=== PATIENT | male | born 1965 | race Caucasian/White ===

== ENCOUNTER 2019-05-12 10:55 | Emergency (ER) | payer SELFPAY ==
[~2019-05-12] VITALS: Ht 177.8 cm; Wt 66.0 kg
[2019-05-12] MEDS ORDERED: IV NORMAL SALINE 1,000ML 1,000 ML IV SCH (11:27)
--- NOTE | 2019-05-12 11:38 | PHYS DOC ---
Past History Past Medical History: Diabetes Additional Past Medical Histor: pancreatic cancer Additional Past Surgical Histo: Whipple procedure Alcohol Use: None Drug Use: None Adult General Chief Complaint Chief Complaint: BACK PAIN - NO INJURY HPI HPI Patient is a 54-year-old male who presents to the emergency department for evaluation. He has remote history of pancreatic cancer, having undergone a Whipple procedure about 10 years ago, and states that he frequently will get episodes of upper abdominal pain, pain in his upper back, as well as nausea. He has not had any significant vomiting, or change in his bowel habitsshe states she has chronic diarrhea since his surgery. He has not had any fevers or chills, chest pain, or significant shortness of breath or cough. The patient states that he was seen in the emergency department at the [facility] about 2 months ago, and bring some records with him, from March 22, 2019, which included chest x- ray, blood and urine testing, and a noncontrast CT of his abdomen and pelvis. He states he has seen his PCP before for the same symptoms and they will wax and wane, several times per year, he states the current episode has been going on 3 days. Review of Systems Review of Systems Constitutional: Denies fever or chills [] Eyes: Denies change in visual acuity, redness, or eye pain [] HENT: Denies nasal congestion or sore throat [] Respiratory: Denies cough or shortness of breath [] Cardiovascular:The patient denies any shortness of breath, chest pain, palpitations, or orthopnea [] GI: No additional information not addressed in HPI [] : Denies dysuria or hematuria [] Musculoskeletal: Denies neck pain or joint pain [] Integument: Denies rash or skin lesions [] Neurologic: Denies headache, focal weakness or sensory changes [] Endocrine: Denies polyuria or polydipsia [] All other systems were reviewed and found to be within normal limits, except as documented in this note. Current Medications Current Medications Current Medications Medications (Trade) Dose Ordered Sig/Marley Start Time Stop Time Status Last Admin Dose Admin Sodium Chloride 1,000 ml @ 1,000 mls/hr Q1H 05/12/19 11:27 05/12/19 12:26 UNV Allergies Allergies Allergies Coded Allergies Type Severity Reaction Last Updated Verified naproxen Allergy Unknown 05/12/19 Yes Physical Exam Physical Exam PHYSICAL EXAM: CONSTITUTIONAL: Well developed, well nourished HEAD: normocephalic, atraumatic EENT: PERRL, EOMI. Conjunctivae normal color, sclerae non-icteric; moist mucous membranes. NECK: Supple, non-tender; no meningismus. LUNGS: Lungs CTA, breathing even and unlabored. Normal air movement. HEART: Regular rate and rhythm, no murmur CHEST: No deformity; non-tender ABDOMEN: The abdomen is firm with voluntary guarding which limits the exam, tenderness to the entire abdomen is present, is in the upper abdomen, without rebound or guarding, there is no definite palpable mass, the lower abdomen is relatively non-tender, no masses or bruits. EXTREM: Normal ROM; no deformity, no calf tenderness. Normal pulses palpable in all extremities. There is no pedal edema. SKIN: No rash; no diaphoresis NEURO: Alert; normal speech and cognition; CN's grossly intact; strength grossly intact without focal deficit. BACK: There is moderate bilateral CVA TTP.There is no bony tenderness to palpation of the thoracic or lumbar spine. Current Patient Data Lab Results Laboratory Tests Test 05/12/19 11:41 05/12/19 14:12 White Blood Count 11.5 x10^3/uL Red Blood Count 4.94 x10^6/uL Hemoglobin 15.0 g/dL Hematocrit 43.5 % Mean Corpuscular Volume 88 fL Mean Corpuscular Hemoglobin 30 pg Mean Corpuscular Hemoglobin Concent 35 g/dL Red Cell Distribution Width 13.2 % Platelet Count 165 x10^3/uL Neutrophils (%) (Auto) 88 % Lymphocytes (%) (Auto) 7 % Monocytes (%) (Auto) 5 % Eosinophils (%) (Auto) 0 % Basophils (%) (Auto) 0 % Neutrophils # (Auto) 10.2 x10^3uL Lymphocytes # (Auto) 0.8 x10^3/uL Monocytes # (Auto) 0.5 x10^3/uL Eosinophils # (Auto) 0.0 x10^3/uL Basophils # (Auto) 0.0 x10^3/uL Sodium Level 140 mmol/L Potassium Level 3.1 mmol/L Chloride Level 104 mmol/L Carbon Dioxide Level 24 mmol/L Anion Gap 12 Blood Urea Nitrogen 8 mg/dL Creatinine 0.7 mg/dL Estimated GFR (Cockcroft-Gault) 118.4 BUN/Creatinine Ratio 11 Glucose Level 172 mg/dL Calcium Level 8.5 mg/dL Total Bilirubin 0.6 mg/dL Aspartate Amino Transf (AST/SGOT) 17 U/L Alanine Aminotransferase (ALT/SGPT) 28 U/L Alkaline Phosphatase 99 U/L Total Protein 6.8 g/dL Albumin 3.3 g/dL Albumin/Globulin Ratio 0.9 Lipase 79 U/L Urine Collection Type Unknown Urine Color Yellow Urine Clarity Clear Urine pH 6.0 Urine Specific [place] 1.015 Urine Protein 30 mg/dl Urine Glucose (UA) 250 mg/dL Urine Ketones (Stick) 15 mg/dL Urine Blood Neg Urine Nitrite Neg Urine Bilirubin Neg Urine Urobilinogen Dipstick 0.2 mg/dL Urine Leukocyte Esterase Neg Urine RBC 0 /HPF Urine WBC 1-4 /HPF Urine Squamous Epithelial Cells Occ /LPF Urine Bacteria 0 /HPF Urine Mucus Mod /LPF Current Medications Medications (Trade) Dose Ordered Sig/Marley Route PRN Reason Start Time Stop Time Status Last Admin Dose Admin Sodium Chloride 1,000 ml @ 1,000 mls/hr Q1H IV 05/12/19 11:27 05/12/19 12:26 DC 05/12/19 11:42 Iohexol (Omnipaque 300 Mg/ml) 75 ml 1X ONCE IV 05/12/19 11:45 05/12/19 11:46 DC 05/12/19 11:45 Morphine Sulfate (Morphine 4mg Syringe) 4 mg 1X ONCE IV 05/12/19 12:45 05/12/19 12:46 DC 05/12/19 12:39 Morphine Sulfate (Morphine 4mg Syringe) 4 mg STK-MED ONCE .ROUTE 05/12/19 12:39 05/12/19 12:39 DC Ondansetron HCl (Zofran) 4 mg 1X ONCE IVP 05/12/19 12:45 05/12/19 12:47 DC 05/12/19 12:45 Potassium Chloride (Klor-Con) 20 meq 1X ONCE PO 05/12/19 13:15 05/12/19 13:16 DC 05/12/19 13:13 Sodium Chloride 1,000 ml @ 1,000 mls/hr 1X ONCE IV 05/12/19 13:15 05/12/19 14:14 DC 05/12/19 13:09 Morphine Sulfate (Morphine 4mg Syringe) 4 mg 1X ONCE IV 05/12/19 14:15 05/12/19 14:25 DC 05/12/19 14:15 Multi-Ingredient Mouthwash/Gargle (Gi Cocktail) 20 ml 1X ONCE PO 05/12/19 14:30 05/12/19 14:31 DC EKG EKG Normal sinus rhythm with a normal rate, normal axis, normal intervals, there are no acute ischemic ST/T changes.[] Radiology/Procedures Radiology/Procedures PROCEDURE: CT ABD PELV W/ IV CONTRST ONLY EXAM: CT ABDOMEN/PELVIS WITH CONTRAST. HISTORY: Abdominal pain, pancreatic cancer status post Whipple procedure. TECHNIQUE: Computed tomography of the abdomen and pelvis was performed after the intravenous administration of iodinated contrast. One or more of the following individualized dose reduction techniques were utilized for this examination: 1. Automated exposure control. 2. Adjustment of the mA and/or kV according to patient size. 3. Use of iterative reconstruction technique. COMPARISON: None. FINDINGS: Lung windows through the visualized portions of the bases reveal mild atelectasis. Bone windows reveal no suspicious lesions. There are changes of body and tail sparing Whipple procedure. The downstream pancreatic duct is dilated to 8 mm. No clear recurrent mass is identified. There is no vascular encasement. There is pneumobilia in the left hepatic lobe without intrahepatic biliary dilatation. No suspicious hepatic lesions are seen. The spleen, adrenal glands and kidneys are unremarkable. The gallbladder is surgically absent. There are no pathologically enlarged lymph nodes. There is mild gaseous distention of the small bowel without a transition point. Stool in the right colon suggests mild constipation. IMPRESSION: 1. Dilatation of the pancreatic duct status post Whipple procedure. This may be a postprocedural appearance. Comparison with older studies is recommended to assess stability. No clear evidence of recurrence. 2. Findings suggesting mild constipation with mild gaseous distention of the small bowel. No clear evidence of obstruction.[] Course & Med Decision Making Course & Med Decision Making Pertinent Labs and Imaging studies reviewed. (See chart for details) 2:50 PM: The patient's condition remains stable. He states that the pain did start moving up into his chest but he has had this before. EKG is unremarkable. This is not a new pain for him and I do not think his pain is consistent with an acute coronary syndrome. I discussed importance of further outpatient follow- up, with GI. []Patient remains stable. I discussed test results, the need for close follow- up, and return precautions. Dragon Disclaimer Dragon Disclaimer This electronic medical record was generated, in whole or in part, using a voice recognition dictation system. Departure Departure: Impression: Primary Impression: Abdominal pain Disposition: HOME, SELF-CARE Condition: STABLE Referrals: CHANDA VALERA APRN (PCP) SELENE BARAJAS MD Patient Instructions: Abdominal Pain, Constipation, Adult Additional Instructions: Further outpatient evaluation by a engraver picture is warranted. Please contact Dr. Barajas, at the provided phone number to schedule appointment for further evaluation. Scripts Acetaminophen With Codeine (TYLENOL WITH CODEINE #3 TABLET) 1 Each Tablet 1 TAB PO PRN Q6HRS PRN for pain MDD 4 Tablet(s), #15 TAB 0 Refills Prov: AJY RODGERS MD 05/12/19 Ondansetron (ONDANSETRON ODT) 4 Mg Tab.rapdis 1 TAB PO PRN Q6-8HRS for N/V, #15 TAB Prov: JAY RODGERS MD 05/12/19 Omeprazole (OMEPRAZOLE) 20 Mg Capsule. 1 CAP PO DAILY for -, #30 CAP 0 Refills Prov: JAY RODGERS MD 05/12/19 JAY RODGERS MD May 12, 2019 11:38
[2019-05-12] MEDS ORDERED: IOHEXOL 300 MG/ML 75 ML VIAL. IV ONE (11:45)
[2019-05-12 12:05] LABS: BASO % 0 % (0-3); EOS % 0 % (0-3); HEMATOCRIT 43.5 % (39.0-53.0); LYMPH # 0.8 x10^3/uL (1.0-4.8); LYMPH % 7 % (24-48); MEAN CORPUSCULAR HEMOGLOBIN 30 pg (25-35); MEAN CORPUSCULAR HGB CONC 35 g/dL (31-37); MEAN CORPUSCULAR VOLUME 88 fL (79-100); MONO # 0.5 x10^3/uL (0.0-1.1); MONO % 5 % (0-9); NEUT # 10.2 x10^3uL (1.8-7.7); NEUT % 88 % (31-73); PLATELET COUNT 165 x10^3/uL (140-400); RED BLOOD COUNT 4.94 x10^6/uL (4.30-5.70); RED CELL DISTRIBUTION WIDTH 13.2 % (11.5-14.5); WHITE BLOOD COUNT 11.5 x10^3/uL (4.0-11.0)
[2019-05-12 12:12] LABS: CALCIUM 8.5 mg/dL (8.5-10.1); CREATININE 0.7 mg/dL (0.7-1.3); GFR 118.4; POTASSIUM 3.1 mmol/L (3.5-5.1)
[2019-05-12 12:26] LABS: ALBUMIN 3.3 g/dL (3.4-5.0); ALBUMIN/GLOBULIN RATIO 0.9 (1.0-1.7); TOTAL BILIRUBIN 0.6 mg/dL (0.2-1.0); TOTAL PROTEIN 6.8 g/dL (6.4-8.2)
[2019-05-12] MEDS ORDERED: MORPHINE SULFATE 4 MG/ML DISP.SYRIN. ONE (12:39)
[2019-05-12] MEDS ORDERED: ONDANSETRON PF 4 MG/2 ML VIAL. IVP ONE (12:45)
[2019-05-12] MEDS ORDERED: MORPHINE SULFATE 4 MG/ML DISP.SYRIN. IV ONE ×2 (12:45→14:15)
[2019-05-12] MEDS ORDERED: IV NORMAL SALINE 1,000ML 1,000 ML IV ONE (13:15)
[2019-05-12] MEDS ORDERED: POTASSIUM CHLORIDE 20 MEQ TABLET.ER. PO ONE (13:15)
--- NOTE | 2019-05-12 13:19 | RAD ---
EXAM: CT ABDOMEN/PELVIS WITH CONTRAST. HISTORY: Abdominal pain, pancreatic cancer status post Whipple procedure. TECHNIQUE: Computed tomography of the abdomen and pelvis was performed after the intravenous administration of iodinated contrast. One or more of the following individualized dose reduction techniques were utilized for this examination: 1. Automated exposure control. 2. Adjustment of the mA and/or kV according to patient size. 3. Use of iterative reconstruction technique. COMPARISON: None. FINDINGS: Lung windows through the visualized portions of the bases reveal mild atelectasis. Bone windows reveal no suspicious lesions. There are changes of body and tail sparing Whipple procedure. The downstream pancreatic duct is dilated to 8 mm. No clear recurrent mass is identified. There is no vascular encasement. There is pneumobilia in the left hepatic lobe without intrahepatic biliary dilatation. No suspicious hepatic lesions are seen. The spleen, adrenal glands and kidneys are unremarkable. The gallbladder is surgically absent. There are no pathologically enlarged lymph nodes. There is mild gaseous distention of the small bowel without a transition point. Stool in the right colon suggests mild constipation. IMPRESSION: 1. Dilatation of the pancreatic duct status post Whipple procedure. This may be a postprocedural appearance. Comparison with older studies is recommended to assess stability. No clear evidence of recurrence. 2. Findings suggesting mild constipation with mild gaseous distention of the small bowel. No clear evidence of obstruction. Electronically signed by: Sandra Le MD (05/12/2019 1:16 PM) [facility]
[2019-05-12 14:04] VITALS: BP 133/76
[2019-05-12] MEDS ORDERED: LIDO:MAALOX 1:1 20 ML SINGLE DOSE. PO ONE (14:30)
[2019-05-12 14:36] LABS: BILIRUBIN,URINE NEG (NEG); CLARITY,URINE CLEAR; COLOR,URINE YELLOW; GLUCOSE,URINE 250 mg/dL (NEG)
[2019-05-12 14:37] LABS: BACTERIA,URINE 0 /HPF (0-FEW); NITRITE,URINE NEG (NEG); RBC,URINE 0 /HPF (0-2); SQUAMOUS EPITHELIAL CELL,UR OCC /LPF; UROBILINOGEN,URINE 0.2 mg/dL (0.2 mg/dL)
[2019-05-12] MEDS ORDERED: OMEP20CA16 PO (14:53)
[2019-05-12] MEDS ORDERED: ACET-704 PO (14:53)
[2019-05-12] MEDS ORDERED: ONDA4TAB12 PO (14:53)
== END 2019-05-12 15:05 | disposition home or self-care (01) ==
LOC: ER 10:55
DX: R10.10 Upper abdominal pain, unspecified (principal); R11.0 Nausea; R19.7 Diarrhea, unspecified; E11.9 Type 2 diabetes mellitus without complications; Z98.890 Other specified postprocedural states; Z88.6 Allergy status to analgesic agent
CPT/HCPCS: 36415; 74177; 80053; 81001; 83690; 85025; 93005; 96361; 96374; 96375; 96376; 99285; J2270; J2405; Q9967; J7030

== ENCOUNTER 2021-02-21 06:18 | Emergency (ER) | payer OTHER ==
[~2021-02-21] VITALS: Ht 177.8 cm; Wt 66.0 kg
[~2021-02-21 06:18] MED LIST: ACET-704 PO; OMEP20CA16 PO; ONDA4TAB12 PO
--- NOTE | 2021-02-21 06:26 | PHYS DOC ---
Past History Past Medical History: Diabetes (type II insulin dependent) Additional Past Medical Histor: pancreatic cancer Past Surgical History: Other Additional Past Surgical Histo: Whipple procedure Alcohol Use: None Drug Use: None Adult General Chief Complaint Chief Complaint: ABDOMINAL PAIN [facility] HPI Patient is a 56-year-old male presenting via POV for abdominal pain. Onset was yesterday without any known inciting event, trauma, ingestion, exposure, sick contact or recent travel. Nothing known makes better, p.o. intake makes worse. Patient describes pain is focal to right lower quadrant and sharp. Patient reports pain is 9/10 in severity and has been more constant in the past several hours since onset. He has history of Whipple procedure due to pancreatic cancer that was performed 1 year ago, states he is cancer free and has had good follow- up in outpatient setting for this, no other abdominal surgeries. Also admits he is a brittle insulin-dependent type 2 diabetic and has been at baseline health with no major changes in medication dosage recently or extreme fluctuations in glycemic control. Denies any recent systemic signs or symptoms of illness such as fever. He is not vaccinated against COVID-19. Patient admits since symptom onset he has been nauseous and had x2 episodes of nonbloody nonbilious emesis Review of Systems Review of Systems Fourteen body systems of review of systems have been reviewed. See HPI for pertinent positives and negative responses, other macias all other systems are negative, non-pertinent or non-contributory Allergies Allergies Allergies Coded Allergies Type Severity Reaction Last Updated Verified naproxen Allergy Unknown 05/12/19 Yes Physical Exam Physical Exam Constitutional: Well developed, well nourished, no acute distress, non-toxic appearance. HENT: Normocephalic, atraumatic, bilateral external ears normal, oropharynx moist, no oral exudates, nose normal. Eyes: PERRLA, EOMI, conjunctiva normal, no discharge. Neck: Normal range of motion, no tenderness, supple, no stridor. Cardiovascular: Heart rate regular, sinus rhythm, no murmurs rubs or gallops Lungs & Thorax: Bilateral breath sounds clear to auscultation Abdomen: Bowel sounds normal, soft, no tenderness, no masses, no pulsatile masses. Nonsurgical abdomen, no peritoneal signs Skin: Warm, dry, no erythema, no rash. Back: No tenderness, no CVA tenderness. Extremities: No tenderness, no cyanosis, no clubbing, ROM intact, no edema. Neurologic: Alert and oriented X 3, grossly normal motor & sensory function, no focal deficits noted. Psychologic: Anxious affect and mood Current Patient Data Vital Signs Vital Signs Date Time Temp Pulse Resp B/P (MAP) Pulse Ox O2 Delivery O2 Flow Rate FiO2 02/21/21 06:28 98.0 55 18 160/79 (106) 100 Room Air Vital Signs Date Time Temp Pulse Resp B/P (MAP) Pulse Ox O2 Delivery O2 Flow Rate FiO2 02/21/21 06:38 24 02/21/21 06:28 98.0 55 160/79 (106) 100 Room Air Lab Results Laboratory Tests Test 02/21/21 06:35 02/21/21 06:37 White Blood Count 11.4 x10^3/uL Red Blood Count 4.67 x10^6/uL Hemoglobin 14.5 g/dL Hematocrit 41.8 % Mean Corpuscular Volume 90 fL Mean Corpuscular Hemoglobin 31 pg Mean Corpuscular Hemoglobin Concent 35 g/dL Red Cell Distribution Width 13.6 % Platelet Count 228 x10^3/uL Neutrophils (%) (Auto) 86 % Lymphocytes (%) (Auto) 10 % Monocytes (%) (Auto) 4 % Eosinophils (%) (Auto) 0 % Basophils (%) (Auto) 0 % Neutrophils # (Auto) 9.9 x10^3uL Lymphocytes # (Auto) 1.1 x10^3/uL Monocytes # (Auto) 0.4 x10^3/uL Eosinophils # (Auto) 0.0 x10^3/uL Basophils # (Auto) 0.0 x10^3/uL Sodium Level 139 mmol/L Potassium Level 3.8 mmol/L Chloride Level 103 mmol/L Carbon Dioxide Level 26 mmol/L Anion Gap 10 Blood Urea Nitrogen 6 mg/dL Creatinine 0.8 mg/dL Estimated GFR (Cockcroft-Gault) 100.7 BUN/Creatinine Ratio 8 Glucose Level 246 mg/dL Lactic Acid Level 1.1 mmol/L Calcium Level 8.6 mg/dL Total Bilirubin 0.7 mg/dL Aspartate Amino Transf (AST/SGOT) 21 U/L Alanine Aminotransferase (ALT/SGPT) 32 U/L Alkaline Phosphatase 117 U/L Troponin I High Sensitivity 6 ng/L Total Protein 6.5 g/dL Albumin 4.0 g/dL Albumin/Globulin Ratio 1.6 Lipase 17 U/L Glucose (Fingerstick) 243 mg/dL Current Medications Medications (Trade) Dose Ordered Sig/Marley Route PRN Reason Start Time Stop Time Status Last Admin Dose Admin Sodium Chloride 1,000 ml @ 1,000 mls/hr Q1H IV 02/21/21 06:45 02/21/21 07:44 DC 02/21/21 06:38 Morphine Sulfate (Morphine 4mg Syringe) 4 mg 1X ONCE IV 02/21/21 06:45 02/21/21 06:47 DC 02/21/21 06:38 Iohexol (Omnipaque 300 Mg/ml) 75 ml 1X ONCE IV 02/21/21 06:45 02/21/21 06:47 DC Info (Do NOT chart on this entry -- for MONITORING) 1 each PRN DAILY PRN MC SEE COMMENTS 02/21/21 06:45 02/23/21 06:44 EKG EKG EKG ordered and interpreted by myself 0745 hrs. as sinus rhythm 64 bpm, unremarkable intervals, no axis deviation, no STEMI Radiology/Procedures Radiology/Procedures CT abdomen pelvis with contrast: Reason for examination: Right lower quadrant pain. Diabetic patient. Helical images were obtained through the abdomen and pelvis with intravenous administration of 74 cc Omnipaque. Reconstruction was performed in sagittal and coronal planes. Exposure: One or more of the following individualized dose reduction techniques were utilized for this examination: 1. Automated exposure control 2. Adjustment of the mA and/or kV according to patient size 3. Use of iterative reconstruction technique. The lung bases are clear. The heart size is normal cardial effusion. No abnormality seen at the liver, spleen or adrenal glands. Gallbladder is surgically absent. There is air in biliary tree similar to previous exam. There are postop changes in the pancreas from Whipple procedure. The abdominal aorta and inferior vena cava show no acute abnormalities. Kidneys show no renal masses, calculi, hydronephrosis or obstructive uropathy. The stomach is not distended. The small intestinal tract shows no abnormal dilatation but distally the small bowel shows some wall thickening which may reflect enteritis. The colon also appears to show wall thickening involving the transverse, descending and sigmoid colon which may reflect colitis. No abnormality seen at the bladder. Prostate gland contains calcifications. Seminal vesicles are symmetric. No free fluid or free air seen in the abdomen or pelvis. No acute bony abnormalities evident. There is however degenerative disc disease at the L5-S1 disc level. IMPRESSION: Thickening of the wall in the distal small intestine without abnormal dilatation. This could reflect enteritis. Thickening of the wall in the colon from the mid transverse colon to the sigmoid colon which may reflect colitis. Electronically signed by: Patricia Katz MD (02/21/2021 7:53 AM) [id number] Heart Score C/O Chest Pain: No HEART Score for Chest Pain: HEART Score for Chest Pain Response (Comments) Value History Slighlty/Non-Suspicious 0 ECG Normal 0 Age >45 - < 65 1 Risk Factors 1 or 2 Risk Factors 1 Troponin < Normal Limit 0 Total 2 Risk Factors: Risk Factors: DM, Current or recent (<one month) smoker, HTN, HLP, family history of CAD, obesity. Risk Scores: Risk Factors: DM, Current or recent (<one month) smoker, HTN, HLP, family history of CAD, obesity. Course & Med Decision Making Course & Med Decision Making ABCs unremarkable HPI physical exam and comprehensive ER work-up nonconcerning for any emergent or surgical issues Discussed findings most consistent with enteritis and colitis. I discussed my concern for infectious origin and so, joint decision made to start ciprofloxacin and Flagyl after discussing side effects of both medications Patient tolerated antibiotics above well. He responded to provided intervention and that included IV fluid rehydration, pain medication and antiemetic Patient appearance improved and joint decision made to discharge home in attempt to treat current flare in outpatient setting with close PCP and oncology/gastroenterology follow-up in outpatient setting Strict return precautions discussed and understood by patient, all questions and concerns addressed prior to ER departure Trev Disclaimer Dragon Disclaimer This electronic medical record was generated, in whole or in part, using a voice recognition dictation system. Departure Departure: Impression: Primary Impression: Abdominal pain Additional Impressions: Colitis Enteritis Disposition: HOME / SELF CARE / HOMELESS Condition: STABLE Referrals: CHANDA VALERA APRN (PCP) Patient Instructions: Colitis Additional Instructions: As discussed prior to ER departure, your vitals, physical exam and comprehensive ER work-up was nonconcerning for any emergent or surgical issues. Your findings were consistent with enteritis and colitis which I discussed concern for infectious etiology. As such, decision was made to start you on ciprofloxacin and metronidazole which are antibiotics which should kill the current infection. Please take these as scheduled to completion. It is pertinent you call your primary care physician first thing in the morning to review ER visit today and need for close outpatient follow-up. I would also notify your oncologist and/or GI physician who is following you for your history of pancreatic cancer to notify them of this recent illness as well as short-term follow-up for repeat evaluation is advised. If any concerning signs or symptoms present prior to ou tpatient follow-up please do not hesitate to come back for repeat evaluation. It was a pleasure to take care of you and I wish you the best going forward Scripts Metronidazole (METRONIDAZOLE) 500 Mg Tablet 1 TAB PO TID for colitis for 10 Days, #29 TAB 0 Refills Prov: JJ MANN DO 02/21/21 Ciprofloxacin Hcl (CIPROFLOXACIN HCL) 500 Mg Tablet 1 TAB PO BID for colitis, #13 TAB Prov: JJ MANN DO 02/21/21 Problem Qualifiers JJ MANN DO Feb 21, 2021 06:26
[2021-02-21 06:28] VITALS: BP 160/79
[2021-02-21] MEDS ORDERED: CONTRAST GIVEN. MC PRN (06:45)
[2021-02-21] MEDS ORDERED: MORPHINE SULFATE 4 MG/ML DISP.SYRIN. IV ONE ×2 (06:45→08:30)
[2021-02-21] MEDS ORDERED: IOHEXOL 300 MG/ML 75 ML VIAL. IV ONE (06:45)
[2021-02-21] MEDS ORDERED: IV NORMAL SALINE 1,000ML 1,000 ML IV SCH (06:45)
[2021-02-21 06:58] LABS: BASO % 0 % (0-3); EOS % 0 % (0-3); HEMATOCRIT 41.8 % (39.0-53.0); HEMOGLOBIN 14.5 g/dL (13.0-17.5); LYMPH # 1.1 x10^3/uL (1.0-4.8); LYMPH % 10 % (24-48); MEAN CORPUSCULAR HEMOGLOBIN 31 pg (25-35); MEAN CORPUSCULAR HGB CONC 35 g/dL (31-37); MEAN CORPUSCULAR VOLUME 90 fL (79-100); MONO # 0.4 x10^3/uL (0.0-1.1); MONO % 4 % (0-9); NEUT # 9.9 x10^3uL (1.8-7.7); NEUT % 86 % (31-73); PLATELET COUNT 228 x10^3/uL (140-400); RED BLOOD COUNT 4.67 x10^6/uL (4.30-5.70); RED CELL DISTRIBUTION WIDTH 13.6 % (11.5-14.5); WHITE BLOOD COUNT 11.4 x10^3/uL (4.0-11.0)
[2021-02-21 07:03] LABS: CALCIUM 8.6 mg/dL (8.5-10.1); CREATININE 0.8 mg/dL (0.7-1.3); GFR 100.7; POTASSIUM 3.8 mmol/L (3.5-5.1)
[2021-02-21 07:09] LABS: ALBUMIN/GLOBULIN RATIO 1.6 (1.0-1.7); TOTAL BILIRUBIN 0.7 mg/dL (0.2-1.0); TOTAL PROTEIN 6.5 g/dL (6.4-8.2)
--- NOTE | 2021-02-21 07:45 | EKG ---
[address] [address] Test Date: 2021-02-21 Test Time: 07:40:36 Pat Name: JACQUELYN MELTON Department: Room: Gender: M Steam Table Associate: BEN : [id number] Requested By: JJ MANN Order Number: [id number] Reading MD: Timbo Merlos MD Measurements Intervals [place] Rate: 64 P: 58 AR: 146 QRS: 75 QRSD: 92 T: 76 QT: 448 QTc: 467 Interpretive Statements SINUS RHYTHM Electronically Signed On 02-21-2021 13:38:17 SUPERINTENDENT QUARRY by Timbo Merlos MD
--- NOTE | 2021-02-21 07:56 | RAD ---
CT abdomen pelvis with contrast: Reason for examination: Right lower quadrant pain. Diabetic patient. Helical images were obtained through the abdomen and pelvis with intravenous administration of 74 cc Omnipaque. Reconstruction was performed in sagittal and coronal planes. Exposure: One or more of the following individualized dose reduction techniques were utilized for thi s examination: 1. Automated exposure control 2. Adjustment of the mA and/or kV according to patient size 3. Use of iterative reconstruction technique. The lung bases are clear. The heart size is normal cardial effusion. No abnormality seen at the liver, spleen or adrenal glands. Gallbladder is surgically absent. There is air in biliary tree similar to previous exam. There are po stop changes in the pancreas from Whipple procedure. The abdominal aorta and inferior vena cava show no acute abnormalities. Kidneys show no renal masses, calculi, hydronephrosis or obstructive uropathy. The stomach is not distended. The small intestinal tract shows no abnormal dilatation but distally th e small bowel shows some wall thickening which may reflect enteritis. The colon also appears to show wall thickening involving the transverse, descending and sigmoid colon which may reflect colitis. No abnormality seen at the bladder. Prostate gland contains calcifications. Seminal vesicles are symm etric. No free fluid or free air seen in the abdomen or pelvis. No acute bony abnormalities evident. There is however degenerative disc disease at the L5-S1 disc lev el. IMPRESSION: Thickening of the wall in the distal small intestine without abnormal dilatation. This could reflect enteritis. Thickening of the wall in the colon from the mid transverse colon to the sigmoid colon which may refl ect colitis. Electronically signed by: Patricia Katz MD (02/21/2021 7:53 AM) [id number]
[2021-02-21] MEDS ORDERED: METR-34 PO (08:22)
[2021-02-21] MEDS ORDERED: CIPR500T2 PO (08:22)
[2021-02-21 08:23] LABS: BARBITURATES NEG (NEG); BENZODIAZEPINES NEG (NEG); CANNABINOIDS NEG (NEG); COCAINE POS (NEG); METHADONE NEG (NEG); OPIATES POS (NEG); PHENCYCLIDINE NEG (NEG)
[2021-02-21] MEDS ORDERED: metroNIDAZOLE 500 MG TABLET PO ONE (08:30)
[2021-02-21] MEDS ORDERED: CIPROFLOXACIN HCL 500 MG TABLET PO ONE (08:30)
[2021-02-21 08:37] LABS: BACTERIA,URINE 0 /HPF (0-FEW); BILIRUBIN,URINE NEG (NEG); CLARITY,URINE CLEAR; COLOR,URINE YELLOW; GLUCOSE,URINE 500 mg/dL (NEG); NITRITE,URINE NEG (NEG); RBC,URINE 0 /HPF (0-2); SQUAMOUS EPITHELIAL CELL,UR OCC /LPF; UROBILINOGEN,URINE 0.2 mg/dL (0.2 mg/dL); WBC,URINE 0 /HPF (0-4)
[2021-02-21 08:38] LABS: AMPHETAMINE/METHAMPHETAMINE NEG (NEG)
== END 2021-02-21 08:58 | disposition home or self-care (01) ==
LOC: ER 06:18
DX: K52.9 Noninfective gastroenteritis and colitis, unspecified (principal); K51.90 Ulcerative colitis, unspecified, without complications; E11.9 Type 2 diabetes mellitus without complications; Z88.8 Allergy status to other drugs, medicaments and biological substances
CPT/HCPCS: 36415; 74177; 80053; 80307; 81001; 82947; 83605; 83690; 84484; 85025; 93005; 96361; 96374; 96376; 99285; J2270; J7030